=== PATIENT | male | born 1960 | race Caucasian/White ===

== ENCOUNTER 2017-03-19 15:35 | Emergency (ER) | payer BC ==
[2017-03-19 16:01] VITALS: BP 154/89
--- NOTE | 2017-03-19 17:11 | PHYS DOC ---
Past Medical History Past Medical History: Hypertension Past Surgical History: No Surgical History Alcohol Use: Rarely Drug Use: None Adult General Chief Complaint Chief Complaint: TOE PROBLEM HPI HPI Patient is a 57 year old male who presents with 5 hour history of having [place] lacerating his left second and third toe on the bottom. Pain is moderate and he is able to bear weight no radiation of the pain. Movement makes the pain worse. Can't remember last tetanus shot. Denies any other injury. Review of Systems Review of Systems Constitutional: Denies fever or chills [] Eyes: Denies change in visual acuity, redness, or eye pain [] HENT: Denies nasal congestion or sore throat [] Respiratory: Denies cough or shortness of breath [] Cardiovascular: No additional information not addressed in HPI [] GI: Denies abdominal pain, nausea, vomiting, bloody stools or diarrhea [] : Denies dysuria or hematuria [] Musculoskeletal: Denies back pain or joint pain [] Integument: Denies rash or skin lesions [] Neurologic: Denies headache, focal weakness or sensory changes [] Endocrine: Denies polyuria or polydipsia [] Current Medications Current Medications Current Medications Medications (Trade) Dose Ordered Sig/Cindi Start Time Stop Time Status Last Admin Dose Admin Lidocaine/Sodium Bicarbonate (Buffered Lidocaine 1%) 20 ml 1X ONCE 03/19/17 17:15 03/19/17 17:28 DC 03/19/17 17:15 20 ML Tetanus/ Diphtheria Toxoids (Tenivac Syringe) 0.5 ml ONCE ONCE 03/19/17 17:15 03/19/17 17:28 DC 03/19/17 17:40 0.5 ML Allergies Allergies Allergies Coded Allergies Type Severity Reaction Last Updated Verified No Known Drug Allergies 03/19/17 No Physical Exam Physical Exam Constitutional: Well developed, well nourished, no acute distress, non-toxic appearance. [] HENT: Normocephalic, atraumatic, bilateral external ears normal, oropharynx moist, no oral exudates, nose normal. [] Eyes: PERRLA, EOMI, conjunctiva normal, no discharge. [] Neck: Normal range of motion, no tenderness, supple, no stridor. [] Cardiovascular:Heart rate regular rhythm, no murmur [] Lungs & Thorax: Bilateral breath sounds clear to auscultation [] Abdomen: Bowel sounds normal, soft, no tenderness, no masses, no pulsatile masses. [] Skin: Warm, dry, no erythema, no rash. [] Back: No tenderness, no CVA tenderness. [] Extremities: No tenderness, no cyanosis, no clubbing, ROM intact, no edema. Except left foot no bony tenderness or deformity seen; 2 lacerations on the bottom of the second toe 1 laceration on the bottom of the third toe on the left [] Neurologic: Alert and oriented X 3, normal motor function, normal sensory function, no focal deficits noted. [] Psychologic: Affect normal, judgement normal, mood normal. [] Current Patient Data Vital Signs Vital Signs Date Time Temp Pulse Resp B/P (MAP) Pulse Ox O2 Delivery O2 Flow Rate FiO2 03/19/17 16:01 98.0 69 18 98 Nasal Cannula 98.0 EKG EKG [] Radiology/Procedures Radiology/Procedures [] Course & Med Decision Making Course & Med Decision Making Pertinent Labs and Imaging studies reviewed. (See chart for details) Procedure: Foot laceration suture repair: left second toe: 2 lacs, 2.0 cm and 1.0 cm AND left third toe: 1 lac 1.5 cm, 1% lido local, 5-0 nylon, irrigated well, no FB seen; 3 sutures, 1 suture and 2 sutures placed, simple interrupted. [] Placed on Keflex empirically and prophylactically. Dragon Disclaimer Dragon Disclaimer This electronic medical record was generated, in whole or in part, using a voice recognition dictation system. Departure Departure Impression: Primary Impression: Laceration of toe of left foot Disposition: HOME, SELF-CARE Condition: IMPROVED Referrals: SB OROSCO MD (PCP) Patient Instructions: Sutured Wound Care, [id number] Additional Instructions: suture removal in 7 days, keep clean and dry, protect toes with shoes Scripts Cephalexin (KEFLEX) 250 Mg Capsule 1 CAP PO QID, #20 CAP Prov: JORDAN WIGGINS MD 03/19/17 JORDAN WIGGINS MD Mar 19, 2017 17:11
[2017-03-19] MEDS ORDERED: LIDOCAINE 1% / SOD BICARB 8.4% 20 ML VIAL. IJ ONE (17:15)
[2017-03-19] MEDS ORDERED: TETANUS AND DIPHTHERIA TOX/PF 0.5 ML DISP.SYRIN. VAX IM ONE (17:15)
[2017-03-19] MEDS ORDERED: CEPH-263 PO (18:09)
== END 2017-03-19 18:27 | disposition home or self-care (01) ==
LOC: ER 15:35
DX: S91.119A Laceration without foreign body of unspecified toe without damage to nail, initial encounter (principal); I10 Essential (primary) hypertension; Y28.8XXA Contact with other sharp object, undetermined intent, initial encounter; Y93.89 Activity, other specified; Y99.8 Other external cause status; Y92.89 Other specified places as the place of occurrence of the external cause
CPT/HCPCS: 12002; 90471; 90714; 99284-25